=== PATIENT | male | born 1990 | race Caucasian/White ===

== ENCOUNTER 2019-04-18 14:42 | Emergency (ER) | payer OTHER ==
[2019-04-18 14:56] VITALS: BP 115/73; PULSE 88; TEMP 97.9; BMI 31.7
[2019-04-18] MEDS ORDERED: KETOROLAC TROMETHAMINE 60 MG/2 ML VIAL IM ONE (14:56)
[2019-04-18] MEDS ORDERED: KETOROLAC TROMETHAMINE 60 MG/2 ML VIAL ONE (14:58)
--- NOTE | 2019-04-18 15:00 | PDOC ---
History of Present Illness - General Chief Complaint: Pain Stated Complaint: RIGHT SHOULDER PAIN Time Seen by Provider: 04/18/19 14:49 Past History - Past Medical History Allergies/Adverse Reactions: Allergies Allergy/AdvReac Type Severity Reaction Status Date / Time No Known Allergies Allergy Verified 04/18/19 14:44 Home Medications: Ambulatory Orders Diclofenac Sodium 50 mg PO QID #20 tablet. 04/18/19 COPD: No - Immunization History Td Vaccination: Yes Immunization Up to Date: Yes - Suicide/Smoking/Psychosocial Hx Smoking Status: No Smoking History: Never smoked Years of Tobacco Use: 0 Have you smoked in the past 12 months: No Number of Cigarettes Smoked Daily: 0 Cigars Per Day: 0 Hx Alcohol Use: No Drug/Substance Use Hx: Yes Substance Use Type: None *Physical Exam - Vital Signs Last Vital Signs Temp Pulse Resp BP Pulse Ox 97.9 F 88 16 115/73 98 04/18/19 14:43 04/18/19 14:43 04/18/19 14:43 04/18/19 14:43 04/18/19 14:43 *DC/Admit/Observation/Transfer Diagnosis at time of Disposition: Shoulder tendinitis Qualifiers: Laterality: right Qualified Code(s): M75.81 - Other shoulder lesions, right shoulder - Discharge Dispostion Disposition: HOME Condition at time of disposition: Improved Decision to Admit order: No - Prescriptions Prescriptions: Diclofenac Sodium 50 mg PO QID #20 tablet.dr - Referrals Referrals: Ramírez Burton MD [Staff Physician] - 3 days - Patient Instructions Additional Instructions: Rest, ice, anti-inflammatory medication as prescribed. Wear sling until pain subsides, removing sling 3-4 times a day for gentle stretching. See computer technical support specialist if there is no improvement in 1 week for further evaluation and treatment - Post Discharge Activity
--- NOTE | 2019-04-18 15:00 | PDOC ---
Documentation entered by Jelani Lowe SCRIBE, acting as scribe for José Manuel Griffin MD. José Manuel Griffin MD: This documentation has been prepared by the Chrissy ramirez Andrys, SCRIBE, under my direction and personally reviewed by me in its entirety. I confirm that the documentation accurately reflects all work, treatment, procedures, and medical decision making performed by me. History of Present Illness - General Chief Complaint: Pain Stated Complaint: RIGHT SHOULDER PAIN Time Seen by Provider: 04/18/19 14:49 History Source: Patient Exam Limitations: No Limitations - History of Present Illness Initial Comments: 04/18/19 15:01 The patient is a 28 year old male with no significant past medical history who presents to the ED with right shoulder pain. Patient reports a sudden onset of right shoulder pain around 4am this morning that woke him out of his sleep. Patient states his shoulder pain is sharp and describes it as something ripped inside. Patient also reports headache associated with present symptoms. Patient states he was throwing baseballs several days ago and associates that with his right shoulder pain. Denies recent injury. Denies any other symptoms. Past History - Past Medical History Allergies/Adverse Reactions: Allergies Allergy/AdvReac Type Severity Reaction Status Date / Time No Known Allergies Allergy Verified 04/18/19 14:44 Home Medications: Ambulatory Orders Diclofenac Sodium 50 mg PO QID #20 tablet. 04/18/19 - Immunization History Td Vaccination: Yes Immunization Up to Date: Yes - Suicide/Smoking/Psychosocial Hx Smoking Status: No Smoking History: Never smoked Years of Tobacco Use: 0 Have you smoked in the past 12 months: No Number of Cigarettes Smoked Daily: 0 Cigars Per Day: 0 Hx Alcohol Use: No Drug/Substance Use Hx: No Substance Use Type: None Review of Systems - Review of Systems Able to Perform ROS?: Yes Comments:: 04/18/19 15:01 CONSTITUTIONAL: Absent: fever, chills, diaphoresis, generalized weakness, malaise, loss of appetite HEENT: Absent: rhinorrhea, nasal congestion, throat pain, throat swelling, difficulty swallowing, mouth swelling, ear pain, eye pain, visual Changes CARDIOVASCULAR: Absent: chest pain, syncope, palpitations, irregular heart rate, lightheadedness , peripheral edema RESPIRATORY: Absent: cough, shortness of breath, dyspnea with exertion, orthopnea, wheezing, stridor, hemoptysis GASTROINTESTINAL: Absent: abdominal pain, abdominal distension, nausea, vomiting, diarrhea, constipation, melena, hematochezia GENITOURINARY: Absent: dysuria, frequency, urgency, hesitancy, hematuria, flank pain, genital pain MUSCULOSKELETAL: + right shoulder pain Absent: joint swelling SKIN: Absent: rash, itching, pallor HEMATOLOGIC/IMMUNOLOGIC: Absent: easy bleeding, easy bruising, lymphadenopathy, frequent infections ENDOCRINE: Absent: unexplained weight gain, unexplained weight loss, heat intolerance, cold intolerance NEUROLOGIC: + headache. Absent: focal weakness or paresthesias, dizziness, unsteady gait, seizure, mental status changes, bladder or bowel incontinence PSYCHIATRIC: Absent: anxiety, depression, suicidal or homicidal ideation, hallucinations. All Other Systems: Reviewed and Negative *Physical Exam - Vital Signs Last Vital Signs Temp Pulse Resp BP Pulse Ox 97.9 F 88 16 115/73 98 04/18/19 14:43 04/18/19 14:43 04/18/19 14:43 04/18/19 14:43 04/18/19 14:43 - Physical Exam Comments: 04/18/19 15:02 GENERAL: Well-appearing, well-nourished. No apparent distress. HEENT: Normocephalic, atraumatic. PERRL, EOM intact. CARDIOVASCULAR: Normal S1, S2. Regular rate and rhythm. PULMONARY: Clear to auscultation bilaterally. ABDOMEN: Soft, non-distended, non-tender. EXTREMITIES: + tenderness of the acromioclavicular ligament. full ROM, but with pain at extremes of abduction. pulses full, no sensory or motor deficits to the upper extremities. no deformity, swelling, erythema or heat of the shoulder joint. SKIN: Warm, dry. No rash NEUROLOGICAL: No focal neurological deficits. Medical Decision Making - Medical Decision Making 04/18/19 15:14 Patient with right shoulder pain since yesterday. He believes that he injured his shoulder throwing a baseball. No deformity and full range of motion, no evidence of fracture. Tenderness over the before meals ligament, probably sprain or tendinitis. Symptomatic treatment and orthopedic follow-up if no improvement. No significant pain or other distress at discharge with friend *DC/Admit/Observation/Transfer Diagnosis at time of Disposition: Shoulder tendinitis Qualifiers: Laterality: right Qualified Code(s): M75.81 - Other shoulder lesions, right shoulder - Discharge Dispostion Disposition: HOME Condition at time of disposition: Improved - Prescriptions Prescriptions: Diclofenac Sodium 50 mg PO QID #20 tablet.dr - Referrals Referrals: Ramírez Burton MD [Staff Physician] - 3 days - Patient Instructions Additional Instructions: Rest, ice, anti-inflammatory medication as prescribed. Wear sling until pain subsides, removing sling 3-4 times a day for gentle stretching. See public health specialist if there is no improvement in 1 week for further evaluation and treatment - Post Discharge Activity
== END 2019-04-18 15:19 | disposition home or self-care (01) ==
LOC: FER 14:42
PROC: 3E0233Z Introduction of Anti-inflammatory into Muscle, Percutaneous Approach (ICD-10-PCS; principal; 2019-04-18)
DX: M75.81 Other shoulder lesions, right shoulder (principal)
CPT/HCPCS: 96372; 99282-25